=== PATIENT | female | born 1980 | race Caucasian/White ===

== ENCOUNTER 2017-04-15 01:16 | Emergency (ER) | payer MEDICAID ==
[~2017-04-15] VITALS: Ht 167.6 cm; Wt 109.1 kg
[~2017-04-15 01:16] MED LIST: ACYC200C PO; ALBU8.5H IH; ALBU8HFA4 IH; FLUT110HFA IH; LISI-662 PO; SERT50TA12 PO
[2017-04-15] MEDS ORDERED: IRON18TA PO (01:24)
[2017-04-15] MEDS ORDERED: THIA100 PO (01:24)
[2017-04-15 02:00] LABS: EOSINOPHILS # (AUTO) 0.43 K/uL (0.00-0.70); EOSINOPHILS % (AUTO) 3.01 % (1.0-6.0); HEMATOCRIT 42.2 % (36-46); HEMOGLOBIN 14.1 g/dL (12.0-16.0); LYMPHOCYTES # (AUTO) 0.9 K/uL (1.0-4.8); LYMPHOCYTES % (AUTO) 6.1 % (22.0-44.0); MEAN CORPUSCULAR HEMOGLOBIN 29.2 pg (26.0-34.0); MEAN CORPUSCULAR HGB CONC 33.3 G/dL (31.0-37.0); MEAN CORPUSCULAR VOLUME 88 fL (80-100); MONOCYTES # (AUTO) 0.4 K/uL (0.1-1.0); MONOCYTES % (AUTO) 2.8 % (2.0-9.0); NEUTROPHILS # (AUTO) 12.6 K/uL (1.8-7.7); NEUTROPHILS % (AUTO) 88.2 % (40.0-70.0); PLATELET COUNT (AUTO) 209 K/uL (150-450); RED BLOOD CELL COUNT(AUTO) 4.81 MIL/uL (4.00-5.20); RED CELL DISTRIBUTION WIDTH 13.3 % (11.5-14.5); WHITE BLOOD COUNT (AUTO) 14.3 K/uL (4.5-11.0)
[2017-04-15] MEDS ORDERED: ONDANSETRON HCL 4 MG/2 ML VIAL IVP ONE (02:00)
[2017-04-15 02:07] LABS: ANION GAP 10 mmol/L (8-16); CALCIUM, TOTAL 8.7 mg/dL (8.8-10.5); CARBON DIOXIDE 24 mmol/L (22-29); CHLORIDE 103 mmol/L (98-107); CREATININE 1.02 mg/dL (0.60-1.30); GLOMERULAR FILTR. RATE CALC > 60 mL/min (>60); POTASSIUM 3.8 mmol/L (3.5-5.1); SODIUM SERUM 137 mmol/L (136-145); UREA NITROGEN, BLOOD 16 mg/dL (7-18)
[2017-04-15 02:13] LABS: ALANINE AMINOTRANSFERASE 24 U/L (12-78); ALBUMIN 4.1 g/dL (3.4-5.0); ASPARTATE AMINOTRANSFERASE 11 U/L (15-37); BILIRUBIN,TOTAL 0.5 mg/dL (0.1-1.0); TOTAL PROTEIN, SERUM 7.7 g/dL (6.4-8.2)
[2017-04-15] MEDS ORDERED: SODIUM CHLORIDE 0.9% 1,000 ML IV ONE (02:30)
[2017-04-15 04:09] LABS: APPEARANCE,URINE CLEAR (CLEAR); GLUCOSE, URINE (UA) NEGATIVE (NEGATIVE); KETONES,URINE NEGATIVE (NEGATIVE); LEUKOCYTE ESTERASE ,URINE NEGATIVE (NEGATIVE); OCCULT BLOOD,URINE TRACE (NEGATIVE); PH,URINE 5.5 (5.0-8.0); PROTEIN,URINE TRACE (NEGATIVE)
[2017-04-15 04:12] LABS: ADD UA MICROSCOPIC YES
[2017-04-15 04:13] VITALS: BP 128/80
[2017-04-15 04:27] LABS: SQUAMOUS EPITHELIAL CELL,UR Rare /LPF (None Seen); WBC,URINE 0-2 /HPF (0-5)
== END 2017-04-15 04:36 | disposition home or self-care (01) ==
LOC: EMS 01:17
DX: K52.9 Noninfective gastroenteritis and colitis, unspecified (principal); I10 Essential (primary) hypertension
CPT/HCPCS: 36415; 80053; 81001; 83690; 84703; 85025; 96361; 96374; 99284; J2405; J7030

== ENCOUNTER 2017-07-22 12:01 | Emergency (ER) | payer MEDICAID ==
[~2017-07-22] VITALS: Ht 167.6 cm; Wt 79.5 kg
[~2017-07-22 12:01] MED LIST changes: -ACYC200C PO; -ALBU8.5H IH; +ALBU8.5H8 IH; +IRON18TA PO; +THIA100 PO
[2017-07-22 14:07] VITALS: BP 132/74
[2017-07-22] MEDS ORDERED: ACETAMINOPHEN 325 MG TABLET PO ONE (14:45)
== END 2017-07-22 14:57 | disposition home or self-care (01) ==
LOC: EMS 12:05
DX: M54.2 Cervicalgia (principal); M54.5 Low back pain; M19.90 Unspecified osteoarthritis, unspecified site; I10 Essential (primary) hypertension; V43.62XA Car passenger injured in collision with other type car in traffic accident, initial encounter; Y93.89 Activity, other specified; Y92.488 Other paved roadways as the place of occurrence of the external cause; Y99.8 Other external cause status
CPT/HCPCS: 72100; 72125; 99285

== ENCOUNTER 2019-10-02 16:13 | Emergency (ER) | payer MEDICAID ==
[~2019-10-02] VITALS: Ht 167.6 cm; Wt 113.6 kg
[~2019-10-02 16:13] MED LIST changes: -THIA100 PO; +THIA100T67 PO
[2019-10-02] MEDS ORDERED: 0.9% SODIUM CHLORIDE 15 ML NEB SOLUTION NEB ONE (17:09)
[2019-10-02] MEDS: IPRATROPIUM BROMIDE 0.5 MG/2.5 ML NEB SOLUTION NEB ONE (17:13)
[2019-10-02] MEDS: ALBUTEROL SULFATE 5 MG/ML 20 ML NEB SOLN [BULK] NEB ONE (17:13)
[2019-10-02 19:08] VITALS: BP 119/53
[2019-10-02] MEDS: ALBUTEROL SULFATE HFA 90 MCG/PUFF 8 GM INHALER IH ONE (19:16)
== END 2019-10-02 19:48 | disposition home or self-care (01) ==
LOC: EMS 16:14
DX: J45.901 Unspecified asthma with (acute) exacerbation (principal); I10 Essential (primary) hypertension
CPT/HCPCS: 94640; 94644; J3535

== ENCOUNTER 2021-03-01 13:28 | Emergency (ER) | payer MEDICAID ==
[~2021-03-01] VITALS: Ht 165.1 cm; Wt 113.6 kg
[~2021-03-01 13:28] MED LIST changes: -LISI-662 PO; +LISI-894 PO; +SERT-158 PO; -SERT50TA12 PO; -THIA100T67 PO; +THIAMINE HCL100 MG PO
[2021-03-01] MEDS ORDERED: THIA100T80 PO (13:43)
[2021-03-01] MEDS ORDERED: SODIUM CHLORIDE 0.9% 1,000 ML IV ONE (13:45)
[2021-03-01] MEDS ORDERED: KETOROLAC TROMETHAMINE 30 MG/ML VIAL IVP ONE (13:45)
[2021-03-01 15:10] LABS: BASOPHILS % (AUTO) 0.3 % (0.0-2.0); EOSINOPHILS % (AUTO) 1.9 % (1.0-6.0); HEMATOCRIT 37.8 % (36-46); HEMOGLOBIN 12.5 g/dL (12.0-16.0); LYMPHOCYTES % (AUTO) 6.6 % (22.0-44.0); MEAN CORPUSCULAR HEMOGLOBIN 29.7 pg (26.0-34.0); MEAN CORPUSCULAR HGB CONC 33.1 G/dL (31.0-37.0); MEAN CORPUSCULAR VOLUME 90 fL (80-100); MONOCYTES # (AUTO) 0.7 K/uL (0.1-1.0); MONOCYTES % (AUTO) 4.8 % (2.0-9.0); NEUTROPHILS # (AUTO) 12.5 K/uL (1.8-7.7); PLATELET COUNT (AUTO) 229 K/uL (150-450); RED BLOOD CELL COUNT(AUTO) 4.22 MIL/uL (4.00-5.20); RED CELL DISTRIBUTION WIDTH 12.9 % (11.5-14.5)
[2021-03-01 15:11] LABS: NEUTROPHILS % (AUTO) 86.4 % (40.0-70.0)
[2021-03-01 15:19] LABS: ANION GAP 11 mmol/L (8-16); CALCIUM, TOTAL 8.5 mg/dL (8.8-10.5); CARBON DIOXIDE 23 mmol/L (22-29); CHLORIDE 103 mmol/L (98-107); CREATININE 0.86 mg/dL (0.60-1.30); GLOMERULAR FILTR. RATE CALC > 60 mL/min (>60); GLUCOSE,RANDOM 135 mg/dL (70-110); POTASSIUM 3.8 mmol/L (3.5-5.1); SODIUM SERUM 137 mmol/L (136-145); UREA NITROGEN, BLOOD 17 mg/dL (7-18)
[2021-03-01 15:27] LABS: PLATELET MORPHOLOGY COMMENT GIANT PLTS PRESENT
[2021-03-01 15:32] LABS: ALANINE AMINOTRANSFERASE 35 U/L (12-78); ALBUMIN 3.8 g/dL (3.4-5.0); ALKALINE PHOSPHATASE 60 U/L (46-116); ASPARTATE AMINOTRANSFERASE 13 U/L (15-37); BILIRUBIN,TOTAL 0.3 mg/dL (0.1-1.0); CREATINE KINASE, TOTAL ONLY 66 U/L (26-192); HCG,QUANTITATIVE < 1 mIU/mL (0-6); LIPASE 63 U/L (73-393)
[2021-03-01 15:49] LABS: APPEARANCE,URINE CLOUDY (CLEAR); BILIRUBIN,URINE NEGATIVE (NEGATIVE); GLUCOSE, URINE (UA) NEGATIVE (NEGATIVE); KETONES,URINE TRACE mg/dL (NEGATIVE); LEUKOCYTE ESTERASE ,URINE NEGATIVE (NEGATIVE); OCCULT BLOOD,URINE SMALL (NEGATIVE); PH,URINE 5.5 (5.0-8.0); PROTEIN,URINE SEE CONFIRM (NEGATIVE); UROBILINOGEN,URINE 0.2 mg/dL (<=1.0)
[2021-03-01] MEDS ORDERED: SODIUM CHLORIDE 0.9% 100 ML ONE (15:50)
[2021-03-01] MEDS ORDERED: IOHEXOL 350 MG/ML 150 ML VIAL ONE (15:50)
[2021-03-01 16:01] LABS: BACTERIA,URINE Many /HPF (None Seen); NITRATE,URINE POSITIVE (NEGATIVE); SQUAMOUS EPITHELIAL CELL,UR Few /LPF (None Seen); SULFOSALICYLIC ACID,URINE 2+ (Negative); WBC,URINE 0-2 /HPF (0-5)
[2021-03-01] MEDS ORDERED: ONDANSETRON HCL 4 MG/2 ML VIAL IVP ONE ×2 (17:15→21:30)
[2021-03-01] MEDS ORDERED: FentaNYL CITRATE PF 100 MCG/2 ML VIAL IVP ONE (17:15)
[2021-03-01 20:47] LABS: PROTHROMBIN TIME 10.5 SEC (9.4-11.6)
[2021-03-01] MEDS ORDERED: HYDROmorphone 2 MG/ML VIAL IVP ONE (21:30)
[2021-03-01 21:35] LABS: HEMATOCRIT 36.2 % (36-46); HEMOGLOBIN 12.1 g/dL (12.0-16.0)
[2021-03-01 21:57] VITALS: BP 127/82
[2021-03-01 22:42] LABS: COVID AG,FIA SOURCE NASOPHARYNGEAL
== END 2021-03-01 23:36 | disposition short-term general hospital (02) ==
LOC: EMS 13:28
DX: D17.71 Benign lipomatous neoplasm of kidney (principal); Q85.1 Tuberous sclerosis; R58 Hemorrhage, not elsewhere classified; J45.909 Unspecified asthma, uncomplicated; I10 Essential (primary) hypertension; Z20.822 Contact with and (suspected) exposure to COVID-19; Z79.899 Other long term (current) drug therapy
CPT/HCPCS: 36415; 71045; 74177; 80053; 81001; 82550; 83690; 84484; 84702; 85014; 85018; 85025; 85610; 85730; 86850; 86900; 86901; 87077; 87086; 87426; 93005; 96361; 96374; 96375; 96376; 99291; A9575; J1170; J1885; J2405; J3010; J7030; J7050; 81002; 87186

== ENCOUNTER 2021-12-29 18:58 | Emergency (ER) | payer MEDICAID ==
[~2021-12-29] VITALS: Ht 167.6 cm; Wt 116.3 kg
[~2021-12-29 18:58] MED LIST changes: -ALBU8HFA4 IH; +FLUT110H IH; -FLUT110HFA IH; +THIA100T80 PO; -THIAMINE HCL100 MG PO
[2021-12-29] MEDS ORDERED: FLUORESCEIN SODIUM 1 MG STRIP OU ONE (20:00)
[2021-12-29] MEDS ORDERED: PROPARACAINE HCL 0.5% 15 ML OPHTHALMIC SOLUTION OU ONE (20:00)
[2021-12-29] MEDS ORDERED: ACETAMINOPHEN 500 MG TABLET PO ONE (20:45)
[2021-12-29] MEDS ORDERED: ERYTHROMYCIN 0.5% 3.5 GM TUBE OPHTHALMIC OINTMENT OU ONE (21:15)
[2021-12-29 22:03] VITALS: BP 123/84
== END 2021-12-29 22:15 | disposition home or self-care (01) ==
LOC: EDUNIT# 18:58 → EMS 19:00
DX: S05.02XA Injury of conjunctiva and corneal abrasion without foreign body, left eye, initial encounter (principal); S05.01XA Injury of conjunctiva and corneal abrasion without foreign body, right eye, initial encounter; I10 Essential (primary) hypertension; J45.909 Unspecified asthma, uncomplicated; Z79.899 Other long term (current) drug therapy; X58.XXXA Exposure to other specified factors, initial encounter; Y93.89 Activity, other specified; Y92.89 Other specified places as the place of occurrence of the external cause; Y99.8 Other external cause status
CPT/HCPCS: 99284; Z7502; Z7610

== ENCOUNTER 2023-09-03 15:19 | Inpatient (IN) | payer MEDICAID ==
[~2023-09-03] VITALS: Ht 167.6 cm; Wt 97.9 kg
[~2023-09-03 15:19] MED LIST changes: -FLUT110H IH; +FLUT12AE19 IH
[2023-09-03] MEDS ORDERED: HYDR-4174 PO (15:26)
[2023-09-03] MEDS ORDERED: APIX5TAB PO (15:26)
[2023-09-03] MEDS ORDERED: FURO80TA3 PO (15:26)
[2023-09-03] MEDS ORDERED: FURO20TA4 PO (15:26)
[2023-09-03] MEDS ORDERED: SPIR50TA27 PO (15:26)
[2023-09-03] MEDS ORDERED: SIRO1TAB5 PO (15:26)
[2023-09-03] MEDS ORDERED: ATOR10TA69 PO (15:26)
[2023-09-03] MEDS ORDERED: ACYC400T20 PO (15:26)
[2023-09-03] MEDS ORDERED: AMLO5TAB66 PO (15:26)
[2023-09-03] MEDS ORDERED: CARV12.530 PO (15:26)
[2023-09-03] MEDS ORDERED: MONT-40 PO (15:26)
[2023-09-03] MEDS ORDERED: CETI10TA58 PO (15:26)
[2023-09-03] MEDS ORDERED: FAMO20TA8 PO (15:26)
[2023-09-03] MEDS ORDERED: POTA-203 PO (15:26)
[2023-09-03] MEDS ORDERED: PRED5TAB2 PO (15:26)
[2023-09-03] MEDS ORDERED: ISOS30TA92 PO (15:26)
[2023-09-03] MEDS ORDERED: SODIUM CHLORIDE 0.9% 1,000 ML IV ONE (18:45)
[2023-09-03] MEDS ORDERED: HYDROCODONE/ACETAMINOPHEN 5-325 MG TABLET PO ONE (18:45)
[2023-09-03 19:06] LABS: BASOPHILS % (AUTO) 0.9 % (0.0-2.0); EOSINOPHILS % (AUTO) 0.6 % (1.0-6.0); HEMATOCRIT 28.9 % (36-46); HEMOGLOBIN 9.5 g/dL (12.0-16.0); LYMPHOCYTES # (AUTO) 0.6 K/uL (1.0-4.8); MEAN CORPUSCULAR HEMOGLOBIN 27.3 pg (26.0-34.0); MEAN CORPUSCULAR HGB CONC 32.9 G/dL (31.0-37.0); MEAN CORPUSCULAR VOLUME 83 fL (80-100); MONOCYTES # (AUTO) 0.5 K/uL (0.1-1.0); MONOCYTES % (AUTO) 4.3 % (2.0-9.0); NEUTROPHILS # (AUTO) 11.1 K/uL (1.8-7.7); PLATELET COUNT (AUTO) 388 K/uL (150-450); RED BLOOD CELL COUNT(AUTO) 3.49 MIL/uL (4.00-5.20); RED CELL DISTRIBUTION WIDTH 15.2 % (11.5-14.5); WHITE BLOOD COUNT (AUTO) 12.5 K/uL (4.5-11.0)
[2023-09-03 19:07] LABS: NEUTROPHILS % (AUTO) 89.2 % (40.0-70.0)
[2023-09-03 19:24] LABS: ANION GAP 15 mmol/L (8-16); CALCIUM, TOTAL 8.9 mg/dL (8.8-10.5); CARBON DIOXIDE 24 mmol/L (22-29); CHLORIDE 102 mmol/L (98-107); CREATININE 2.58 mg/dL (0.60-1.30); GLOMERULAR FILTR. RATE CALC 20 mL/min (>60); GLUCOSE,RANDOM 146 mg/dL (70-110); POTASSIUM 3.1 mmol/L (3.5-5.1); SODIUM SERUM 141 mmol/L (136-145); UREA NITROGEN, BLOOD 54 mg/dL (7-18)
[2023-09-03 19:36] LABS: ALANINE AMINOTRANSFERASE 37 U/L (12-78); ALBUMIN 2.8 g/dL (3.4-5.0); ALKALINE PHOSPHATASE 96 U/L (46-116); ASPARTATE AMINOTRANSFERASE 20 U/L (15-37); BILIRUBIN,TOTAL 0.2 mg/dL (0.1-1.0); HCG,QUANTITATIVE < 1 mIU/mL (0-6); LIPASE 50 U/L (16-77); TOTAL PROTEIN, SERUM 7.8 g/dL (6.4-8.2)
[2023-09-03 19:49] LABS: APPEARANCE,URINE CLEAR (CLEAR); BILIRUBIN,URINE NEGATIVE (NEGATIVE); COLOR,URINE COLORLESS (YELLOW); GLUCOSE, URINE (UA) 70-100 mg/dL (NEGATIVE); KETONES,URINE NEGATIVE (NEGATIVE); LEUKOCYTE ESTERASE ,URINE NEGATIVE (NEGATIVE); NITRATE,URINE NEGATIVE (NEGATIVE); OCCULT BLOOD,URINE NEGATIVE (NEGATIVE); PROTEIN,URINE 100-200,SEE CONFIRM mg/dL (NEGATIVE); SPECIFIC GRAVITIY, URINE 1.011 (1.003-1.030); UROBILINOGEN,URINE <=1.0 mg/dL (<=1.0)
[2023-09-03 20:21] LABS: BACTERIA,URINE None Seen /HPF (None Seen); RBC,URINE None Seen /HPF (0-2); SQUAMOUS EPITHELIAL CELL,UR Rare /LPF (None Seen); SULFOSALICYLIC ACID,URINE 1+ (Negative); WBC,URINE 0-2 /HPF (0-5)
[2023-09-03] MEDS ORDERED: PIPERACILLIN/TAZO 3.375 GM/D5W 50 ML IV ONE (21:30)
[2023-09-03 23:25] VITALS: BP 108/56; PULSE 72; RESP 18; TEMP 98.4
[2023-09-03] MEDS: POTASSIUM CHL 10 MEQ/WATER 50 ML IV SCH (23:37)
[2023-09-04] MEDS: POTASSIUM CHL 10 MEQ/WATER 50 ML IV SCH ×5 (00:41→14:51)
[2023-09-04] MEDS ORDERED: INFLUENZA VIRUS VACCINE QVS 2023-24 (6MO+)/PF 60 MCG/0.5 ML SYRINGE IM. ONE (02:15)
[2023-09-04] MEDS ORDERED: PNEUMOCOCCAL VACCINE POLYVALENT 0.5 ML SYRINGE [PPSV23] IM. ONE (02:15)
[2023-09-04 05:18] VITALS: BP 131/68; PULSE 66; RESP 20; TEMP 98.6
[2023-09-04] MEDS ORDERED: ALBUTEROL SULFATE HFA 90 MCG/PUFF 8 GM INHALER IH PRN (05:45)
[2023-09-04 07:38] LABS: POTASSIUM 2.9 mmol/L (3.5-5.1)
[2023-09-04] MEDS ORDERED: SODIUM CHLORIDE 0.9% 500 ML IV ONE (08:25)
[2023-09-04 08:36] VITALS: BP 118/61; PULSE 62; RESP 20; TEMP 98.4
[2023-09-04] MEDS ORDERED: IPRATROPIUM BROMIDE 0.5 MG/2.5 ML NEB SOLUTION NEB PRN (09:00)
[2023-09-04] MEDS ORDERED: FUROSEMIDE 20 MG TABLET PO SCH (09:00)
[2023-09-04] MEDS ORDERED: FUROSEMIDE 80 MG TABLET PO SCH (09:00)
[2023-09-04] MEDS ORDERED: ALBUTEROL SULFATE 2.5 MG/0.5 ML NEB SOLUTION NEB PRN (09:00)
[2023-09-04] MEDS ORDERED: HYDROCODONE/ACETAMINOPHEN 5-325 MG TABLET PO PRN (09:00)
[2023-09-04] MEDS ORDERED: ONDANSETRON HCL 4 MG/2 ML VIAL IVP PRN (09:00)
[2023-09-04] MEDS ORDERED: MAGNESIUM HYDROXIDE SUSPENSION 30 ML UDCUP PO PRN (09:00)
[2023-09-04] MEDS ORDERED: SPIRONOLACTONE 50 MG TABLET PO SCH (09:00)
[2023-09-04] MEDS ORDERED: ISOSORBIDE MONONITRATE 30 MG ER TABLET PO SCH (09:00)
[2023-09-04] MEDS ORDERED: MORPHINE SULFATE 2 MG/ML SYRINGE IVP PRN (09:00)
[2023-09-04] MEDS ORDERED: BISACODYL 10 MG RECTAL RECTAL SUPPOSITORY PR PRN (09:00)
[2023-09-04] MEDS ORDERED: ZOLPIDEM TARTRATE 5 MG TABLET PO PRN (09:00)
[2023-09-04] MEDS ORDERED: CETIRIZINE HCL 10 MG TABLET PO PRN (09:00)
[2023-09-04] MEDS ORDERED: SODIUM CHLORIDE 0.9% 1,000 ML ONE (10:12)
[2023-09-04 10:14] LABS: ALBUMIN 2.1 g/dL (3.4-5.0); BILIRUBIN,TOTAL 0.2 mg/dL (0.1-1.0); CALCIUM, TOTAL 8.4 mg/dL (8.8-10.5); CREATININE 2.36 mg/dL (0.60-1.30); TOTAL PROTEIN, SERUM 6.8 g/dL (6.4-8.2)
[2023-09-04 10:15] LABS: TROPONIN I-HIGH SENSITIVITY 8 ng/L (<51)
[2023-09-04] MEDS ORDERED: BUPIVACAINE/EPI/PF 0.5% 30 ML VIAL ONE (10:21)
[2023-09-04] MEDS ORDERED: IOHEXOL 240 MG/ML 20 ML VIAL ONE ×2 (10:21)
[2023-09-04] MEDS ORDERED: SODIUM CL IRRIG SOLN BAG 3,000 ML IRRIG ONE (10:22)
[2023-09-04] MEDS: SODIUM CHLORIDE 0.45% 1,000 ML IV SCH (10:25)
[2023-09-04] MEDS: PANTOPRAZOLE SODIUM 40 MG/VIAL IVP SCH (10:26)
[2023-09-04] MEDS: CARVEDILOL 12.5 MG TABLET PO SCH ×2 (10:26→20:09)
[2023-09-04] MEDS: FAMOTIDINE 20 MG TABLET PO SCH ×2 (10:26→20:09)
[2023-09-04] MEDS: AmLODIPine BESYLATE 5 MG TABLET PO SCH (10:27)
[2023-09-04] MEDS: SIROLIMUS 1 MG TABLET PO SCH (10:27)
[2023-09-04] MEDS: DOCUSATE SODIUM 100 MG CAPSULE PO SCH ×2 (10:27→20:04)
[2023-09-04] MEDS: PredniSONE 5 MG TABLET PO SCH (10:28)
[2023-09-04] MEDS: HydrALAZINE HCL 50 MG TABLET PO SCH ×2 (10:28→20:09)
[2023-09-04] MEDS ORDERED: BUPIVACAINE 0.25%/EPI 1:200,000/PF 10 ML VIAL ONE (10:32)
[2023-09-04] MEDS ORDERED: POTASSIUM CHLORIDE 20 MEQ ER TABLET PO ONE (11:00)
[2023-09-04] MEDS: POTASSIUM CHLORIDE 10 MEQ ER TABLET PO SCH (11:00)
[2023-09-04 13:15] VITALS: BP 114/54; PULSE 59; RESP 19; TEMP 98.3
[2023-09-04] MEDS: ACYCLOVIR 200 MG CAPSULE PO SCH ×2 (14:51→20:09)
[2023-09-04 15:45] VITALS: BP 120/62; PULSE 64; RESP 20; TEMP 98
[2023-09-04] MEDS: HEPARIN SODIUM,PORCINE 5,000 UNITS/ML VIAL SQ SCH ×2 (16:00→23:48)
[2023-09-04] MEDS: BENZONATATE 100 MG CAPSULE PO SCH ×2 (16:33→23:49)
[2023-09-04 19:49] LABS: ABG BASE EXCESS -3.1 mmol/L (-2.0-3.0); ABG CARBOXYHEMOGLOBIN 0.1 % (0.0-1.5); ABG HCO3 22.6 mmol/L (22.0-26.0); ABG METHEMOGLOBIN 0.3 % (0.0-1.5); ABG OXYGEN CONTENT 13.1 mL/dL (15.0-23.0); ABG OXYGEN SATURATION 95.1 % (95.0-98.0); ABG OXYHEMOGLOBIN 94.7 % (94.0-100.0); ABG PCO2 27 mmHg (35-45); ABG PH 7.488 (7.35-7.450); ABG TOTAL HEMOGLOBIN 9.8 G/dL (12.0-18.0); PO2, ARTERIAL BG 73.6 mmHg (88.0-96.0); SOURCE, BLOOD GAS ARTERIAL; TEMPERATURE, FAHRENHEIT, BG 98.6 FAHREN (96.0-98.6)
[2023-09-04 19:50] LABS: ALLEN TEST, BLOOD GAS Positive; SITE, BLOOD GAS RT RADIAL
[2023-09-04 19:51] VITALS: BP 120/69; PULSE 66; RESP 19; TEMP 97.8
[2023-09-04] MEDS: MONTELUKAST SODIUM 10 MG TABLET PO SCH (20:08)
[2023-09-04] MEDS: ATORVASTATIN CALCIUM 10 MG TABLET PO SCH (20:09)
[2023-09-04] MEDS: ACETAMINOPHEN 325 MG TABLET PO PRN (20:14)
[2023-09-05 00:06] VITALS: BP 101/50; PULSE 75; RESP 18; TEMP 98.8
[2023-09-05 05:42] VITALS: BP 130/81; PULSE 79; RESP 18; TEMP 98.5
[2023-09-05] MEDS: SODIUM CHLORIDE 0.45% 1,000 ML IV SCH (06:14)
[2023-09-05 07:16] LABS: BASOPHILS % (AUTO) 1.5 % (0.0-2.0); EOSINOPHILS % (AUTO) 1.6 % (1.0-6.0); HEMATOCRIT 26.6 % (36-46); LYMPHOCYTES # (AUTO) 1.4 K/uL (1.0-4.8); LYMPHOCYTES % (AUTO) 15.5 % (22.0-44.0); MEAN CORPUSCULAR HEMOGLOBIN 27.8 pg (26.0-34.0); MEAN CORPUSCULAR HGB CONC 33.8 G/dL (31.0-37.0); MEAN CORPUSCULAR VOLUME 82 fL (80-100); MONOCYTES # (AUTO) 0.6 K/uL (0.1-1.0); MONOCYTES % (AUTO) 6.8 % (2.0-9.0); NEUTROPHILS # (AUTO) 6.6 K/uL (1.8-7.7); NEUTROPHILS % (AUTO) 74.6 % (40.0-70.0); PLATELET COUNT (AUTO) 316 K/uL (150-450); RED BLOOD CELL COUNT(AUTO) 3.24 MIL/uL (4.00-5.20); RED CELL DISTRIBUTION WIDTH 15.3 % (11.5-14.5); WHITE BLOOD COUNT (AUTO) 8.8 K/uL (4.5-11.0)
[2023-09-05 07:37] LABS: CALCIUM, TOTAL 8.5 mg/dL (8.8-10.5); CREATININE 2.17 mg/dL (0.60-1.30); POTASSIUM 3.5 mmol/L (3.5-5.1)
[2023-09-05 07:40] VITALS: BP 114/80; PULSE 81; RESP 19; TEMP 98.8
[2023-09-05] MEDS: HydrALAZINE HCL 50 MG TABLET PO SCH ×2 (08:57→20:33)
[2023-09-05] MEDS: SIROLIMUS 1 MG TABLET PO SCH (08:57)
[2023-09-05] MEDS: PredniSONE 5 MG TABLET PO SCH (08:57)
[2023-09-05] MEDS: CARVEDILOL 12.5 MG TABLET PO SCH ×2 (08:58→20:33)
[2023-09-05] MEDS: PANTOPRAZOLE SODIUM 40 MG/VIAL IVP SCH (08:58)
[2023-09-05] MEDS: AmLODIPine BESYLATE 5 MG TABLET PO SCH (08:58)
[2023-09-05] MEDS: POTASSIUM CHLORIDE 10 MEQ ER TABLET PO SCH (08:58)
[2023-09-05] MEDS: FAMOTIDINE 20 MG TABLET PO SCH ×2 (08:58→20:33)
[2023-09-05] MEDS: BENZONATATE 100 MG CAPSULE PO SCH ×2 (08:58→15:19)
[2023-09-05] MEDS: ACYCLOVIR 200 MG CAPSULE PO SCH ×2 (08:58→20:33)
[2023-09-05] MEDS: DOCUSATE SODIUM 100 MG CAPSULE PO SCH ×2 (09:00→20:32)
[2023-09-05] MEDS ORDERED: HEPARIN SODIUM,PORCINE 5,000 UNITS/ML VIAL IVP PRN ×2 (09:00)
[2023-09-05 10:12] LABS: BASOPHILS % (AUTO) 0.8 % (0.0-2.0); EOSINOPHILS % (AUTO) 2.1 % (1.0-6.0); HEMATOCRIT 26.9 % (36-46); LYMPHOCYTES # (AUTO) 1.2 K/uL (1.0-4.8); LYMPHOCYTES % (AUTO) 12.4 % (22.0-44.0); MEAN CORPUSCULAR HEMOGLOBIN 27.9 pg (26.0-34.0); MEAN CORPUSCULAR HGB CONC 33.6 G/dL (31.0-37.0); MEAN CORPUSCULAR VOLUME 83 fL (80-100); MONOCYTES # (AUTO) 0.8 K/uL (0.1-1.0); MONOCYTES % (AUTO) 8.2 % (2.0-9.0); NEUTROPHILS # (AUTO) 7.3 K/uL (1.8-7.7); NEUTROPHILS % (AUTO) 76.5 % (40.0-70.0); PLATELET COUNT (AUTO) 342 K/uL (150-450); RED BLOOD CELL COUNT(AUTO) 3.23 MIL/uL (4.00-5.20); RED CELL DISTRIBUTION WIDTH 15.5 % (11.5-14.5); WHITE BLOOD COUNT (AUTO) 9.5 K/uL (4.5-11.0)
[2023-09-05 10:26] LABS: INR 1.1 (0.9-1.1)
[2023-09-05] MEDS ORDERED: EPOETIN ALFA 10,000 UNITS/ML VIAL SQ ONE (10:45)
[2023-09-05 11:43] VITALS: BP 111/56; PULSE 74; RESP 18; TEMP 98.5
[2023-09-05] MEDS: HEPARIN SODIUM 25000 UNITS/D5W 250 ML IV PRN (12:39)
[2023-09-05 15:49] VITALS: BP 109/55; PULSE 74; RESP 18; TEMP 97.5
[2023-09-05 19:46] VITALS: BP 128/74; PULSE 73; RESP 18; TEMP 98.1
[2023-09-05] MEDS: MONTELUKAST SODIUM 10 MG TABLET PO SCH (20:33)
[2023-09-05] MEDS: ATORVASTATIN CALCIUM 10 MG TABLET PO SCH (20:34)
[2023-09-05] MEDS: ACETAMINOPHEN 325 MG TABLET PO PRN (20:40)
[2023-09-06 00:18] VITALS: BP 108/63; PULSE 72; RESP 18; TEMP 98.4
[2023-09-06] MEDS: SODIUM CHLORIDE 0.45% 1,000 ML IV SCH ×2 (00:52→22:25)
[2023-09-06] MEDS: BENZONATATE 100 MG CAPSULE PO SCH ×4 (00:52→23:26)
[2023-09-06 04:29] VITALS: BP 125/74; PULSE 83; RESP 18; TEMP 98.2
[2023-09-06] MEDS: HEPARIN SODIUM 25000 UNITS/D5W 250 ML IV PRN ×3 (05:41→16:43)
[2023-09-06 05:56] LABS: GLUCOMETER DEV NAME(LOC) 5S.2C; GLUCOSE,POINT OF CARE 83 MG/DL (70-110)
[2023-09-06 06:55] LABS: BASOPHILS % (AUTO) 1.3 % (0.0-2.0); EOSINOPHILS % (AUTO) 1.6 % (1.0-6.0); HEMATOCRIT 26.4 % (36-46); HEMOGLOBIN 8.8 g/dL (12.0-16.0); LYMPHOCYTES # (AUTO) 1.6 K/uL (1.0-4.8); LYMPHOCYTES % (AUTO) 22.7 % (22.0-44.0); MEAN CORPUSCULAR HEMOGLOBIN 27.7 pg (26.0-34.0); MEAN CORPUSCULAR HGB CONC 33.5 G/dL (31.0-37.0); MEAN CORPUSCULAR VOLUME 83 fL (80-100); MONOCYTES # (AUTO) 0.5 K/uL (0.1-1.0); MONOCYTES % (AUTO) 6.8 % (2.0-9.0); NEUTROPHILS # (AUTO) 4.9 K/uL (1.8-7.7); NEUTROPHILS % (AUTO) 67.6 % (40.0-70.0); PLATELET COUNT (AUTO) 339 K/uL (150-450); RED BLOOD CELL COUNT(AUTO) 3.19 MIL/uL (4.00-5.20); RED CELL DISTRIBUTION WIDTH 15.4 % (11.5-14.5); WHITE BLOOD COUNT (AUTO) 7.3 K/uL (4.5-11.0)
[2023-09-06 08:00] VITALS: BP 127/64; PULSE 79; RESP 19; TEMP 98.3
[2023-09-06] MEDS: PANTOPRAZOLE SODIUM 40 MG/VIAL IVP SCH (08:21)
[2023-09-06] MEDS: FAMOTIDINE 20 MG TABLET PO SCH ×2 (08:22→20:14)
[2023-09-06] MEDS: HydrALAZINE HCL 50 MG TABLET PO SCH ×2 (08:22→20:14)
[2023-09-06] MEDS: CARVEDILOL 12.5 MG TABLET PO SCH ×2 (08:22→20:15)
[2023-09-06] MEDS: PredniSONE 5 MG TABLET PO SCH (08:22)
[2023-09-06] MEDS: ACYCLOVIR 200 MG CAPSULE PO SCH (08:23)
[2023-09-06] MEDS: POTASSIUM CHLORIDE 10 MEQ ER TABLET PO SCH (08:23)
[2023-09-06] MEDS: SIROLIMUS 1 MG TABLET PO SCH (08:23)
[2023-09-06] MEDS: AmLODIPine BESYLATE 5 MG TABLET PO SCH (08:25)
[2023-09-06] MEDS: DOCUSATE SODIUM 100 MG CAPSULE PO SCH ×2 (08:38→20:16)
[2023-09-06 11:15] VITALS: BP 122/68; PULSE 83; RESP 19; TEMP 98.8
[2023-09-06] MEDS ORDERED: MAGNESIUM SULFATE 2 GM/WATER 50 ML IV PRN (15:00)
[2023-09-06] MEDS ORDERED: MAGNESIUM OXIDE 400 MG TABLET PO PRN (15:00)
[2023-09-06] MEDS ORDERED: MAGNESIUM SULFATE 4 GM/WATER 100 ML IV PRN (15:00)
[2023-09-06 16:15] VITALS: BP 124/60; PULSE 85; RESP 18; TEMP 98.3
[2023-09-06 16:20] LABS: MAGNESIUM 2.1 mg/dL (1.80-2.40)
[2023-09-06 17:36] LABS: ALBUMIN 2.5 g/dL (3.4-5.0)
[2023-09-06] MEDS: MONTELUKAST SODIUM 10 MG TABLET PO SCH (20:15)
[2023-09-06] MEDS: ATORVASTATIN CALCIUM 10 MG TABLET PO SCH (20:15)
[2023-09-06 20:23] VITALS: BP 135/73; PULSE 93; RESP 20; TEMP 98.5
[2023-09-06] MEDS ORDERED: MEBROFENIN TC99M/MCL ISOTOPE 1 EA INJ INJ ONE (20:40)
[2023-09-07] VITALS (7 sets, daily range): BP systolic 106–120; BP diastolic 47–73; PULSE 75–88; RESP 18; TEMP 98.3–99.1
[2023-09-07 07:12] LABS: MAGNESIUM 2.2 mg/dL (1.80-2.40); POTASSIUM 3.7 mmol/L (3.5-5.1)
[2023-09-07] MEDS: BENZONATATE 100 MG CAPSULE PO SCH ×2 (08:32→17:41)
[2023-09-07] MEDS: AmLODIPine BESYLATE 5 MG TABLET PO SCH (08:33)
[2023-09-07] MEDS: PredniSONE 5 MG TABLET PO SCH (08:33)
[2023-09-07] MEDS: FAMOTIDINE 20 MG TABLET PO SCH (08:33)
[2023-09-07] MEDS: CARVEDILOL 12.5 MG TABLET PO SCH (08:33)
[2023-09-07] MEDS: PANTOPRAZOLE SODIUM 40 MG/VIAL IVP SCH (08:33)
[2023-09-07] MEDS: DOCUSATE SODIUM 100 MG CAPSULE PO SCH (08:34)
[2023-09-07] MEDS: HydrALAZINE HCL 50 MG TABLET PO SCH (08:36)
[2023-09-07] MEDS: POTASSIUM CHLORIDE 10 MEQ ER TABLET PO SCH (08:36)
[2023-09-07] MEDS: SIROLIMUS 1 MG TABLET PO SCH (08:36)
[2023-09-07] MEDS ORDERED: AMOX1TAB16 PO (16:50)
[2023-09-07] MEDS ORDERED: BENZ100C68 PO (16:50)
== END 2023-09-07 18:45 | disposition home or self-care (01) ==
LOC: EMS 15:20 → 6S 22:00 → 5S 09-04 11:53
PROVIDERS: ADMIT Hospitalist; ATTEND Hospitalist
DX: K80.00 Calculus of gallbladder with acute cholecystitis without obstruction (principal); J84.81 Lymphangioleiomyomatosis; N17.9 Acute kidney failure, unspecified; E87.3 Alkalosis; Q85.1 Tuberous sclerosis; I50.22 Chronic systolic (congestive) heart failure; I13.0 Hypertensive heart and chronic kidney disease with heart failure and stage 1 through stage 4 chronic kidney disease, or unspecified chronic kidney disease; D63.1 Anemia in chronic kidney disease; G47.33 Obstructive sleep apnea (adult) (pediatric); I49.3 Ventricular premature depolarization; I77.82 Antineutrophilic cytoplasmic antibody [ANCA] vasculitis; J45.909 Unspecified asthma, uncomplicated; E66.01 Morbid (severe) obesity due to excess calories; E78.5 Hyperlipidemia, unspecified; N18.4 Chronic kidney disease, stage 4 (severe); E87.6 Hypokalemia; Z79.899 Other long term (current) drug therapy; Z86.718 Personal history of other venous thrombosis and embolism; Z68.38 Body mass index [BMI] 38.0-38.9, adult; Z79.01 Long term (current) use of anticoagulants
CPT/HCPCS: 36600; 71045; 71250; 76705; 78226; 80048; 80053; 81001; 81002; 81003; 82040; 82271; 82805; 82962; 83690; 83735; 84132; 84484; 84702; 84703; 85025; 85610; 85730; 87040; 87081; 90686; 90732; 93005; 93306; 99285; A9537; C9113; J0885; J1644; J2543; J3480; J3490; J3535; J7030; J7040; J7520; Q9966; 36415-L1; 36415-TC; G0008